=== PATIENT | female | born 1990 | race Caucasian/White ===

== ENCOUNTER 2017-01-09 08:51 | Inpatient (IN) | payer BC ==
[2017-01-09] VITALS (25 sets, daily range): BP systolic 97–114; BP diastolic 50–74; PULSE 71–85; RESP 18; TEMP 97.5–98.4; O2SAT 97–99
[~2017-01-09] VITALS: Ht 162.6 cm; Wt 66.7 kg
--- NOTE | 2017-01-09 09:19 | HHI.HP ---
HPI Chief Complaint Primary for breech presentation. Date Seen: Jan 09, 2017 Travel History International Travel<30 Days: No Contact w/Intl Traveler<30Days: No History of Present Illness HPI Patient is a 26 year old at 39-1/7 weeks gestation who presents today for primary for breech presentation. She denies any vaginal bleeding or discharge. No gush or leaking of fluid. No contractions. Positive movement. No complications with . History Past Medical History Medical History: Denies Significant Hx Obstetric History Obstetric History Past Surgical History Surgical History: No Previous Surgery Family History Family History: Negative Social History Alcohol Use: No Tobacco Use: No Substance Abuse: No Allergies-Medications (Allergen,Severity, Reaction): Coded Allergies: No Known Allergies (Verified Allergy, Mild, 11/15/04) Review of Systems Except as stated in HPI: all other systems reviewed are Neg General / Constitutional: No: Fever, Chills Eyes: No: Blurred Vision, Visual changes HENT: No: Headaches Cardiovascular: No: Chest Pain or Discomfort Respiratory: No: Short of Breath Gastrointestinal: No: Abdominal Pain Genitourinary: No: Pelvic Pain, Discharge, Vaginal Bleeding Musculoskeletal: No: Edema Neurologic: No: Headache Psychiatric: No: Substance Abuse Physical Exam Narrative GENERAL: Well-nourished, well-developed patient. SKIN: Warm and dry. HEAD: Normocephalic and atraumatic. EYES: No scleral icterus. No injection or drainage. ENT: No nasal drainage noted. Mucous membranes pink. Airway patent. NECK: Supple, trachea midline. No JVD. CARDIOVASCULAR: Regular rate and rhythm without murmurs, gallops, or rubs. RESPIRATORY: Breath sounds equal bilaterally. No accessory muscle use. ABDOMEN/GI: Abdomen soft, non-tender, bowel sounds present, no rebound, no guarding Gravid to 39 weeks size GENITOURINARY: External Genitalia: intact and normal in appearance Presentation: Breech Membranes: intact Uterine Contractions: irregular FHT's: Category: I Baseline: 125 Reactive: + Variability: moderate Decels: none EXTREMITIES: No cyanosis or edema. BACK: Nontender without obvious deformity. No CVA tenderness. NEUROLOGICAL: Awake and alert. Motor and sensory grossly within normal limits. Normal speech. Data Data Vital Signs Reviewed: Yes Orders Admit To Inpatient (01/09/17 ) Code Status (01/09/17 09:06) Vital Signs (Adult) .ON ADMISSION (01/09/17 09:06) Activity Oob Ad Amanda (01/09/17 09:06) Heart (01/09/17 09:06) Urinary Catheter Management MICHAEL.Q8H (01/09/17 09:06) ^ Preps (01/09/17 09:06) Scd / Rober / Foot Pump MICHAEL.QSHIFT (01/09/17 09:06) ^ Ultrasound For Locatio (01/09/17 09:06) Diet Npo (01/09/17 Breakfast) Lactated Ringer's 1000 Ml Inj (Lr 1000 M (01/09/17 10:00) Lactated Ringer's 1000 Ml Inj (Lr 1000 M (01/09/17 10:00) Citric Acid-Sodium Citrate Liq (Bicitra (01/09/17 10:45) Type And Screen (01/09/17 09:06) Complete Blood Count With Diff (01/09/17 09:06) Urinalysis - C+S If Indicated (01/09/17 09:06) Cefazolin Inj (Ancef Inj) (01/09/17 10:15) Inpatient Certification (01/09/17 ) Specimen To Be Collected PRN (01/09/17 09:06) Assessment/Plan Assessment and Plan 26 year old at 39-1/7 weeks gestation. 1. IUP- Category I tracing, reassuring. 2. Primary for breech presentation. Breech presentation confirmed by bedside US. 3. GBS positive. Angelina Saldaña Dr., MD R2 Jan 09, 2017 09:19
[2017-01-09 09:58] LABS: AUTOMATED NEUTROPHIL # 5.2 TH/MM3 (1.8-7.7); BASOPHIL % 0.5 % (0.0-2.0); EOSINOPHIL # 0.1 TH/MM3 (0-0.4); EOSINOPHIL % 1.6 % (0.0-4.0); HEMATOCRIT 40.5 % (35.0-46.0); HEMO FLAGS DIFF FINAL; LYMPH % 23.3 % (9.0-44.0); LYMPHOCYTE # 1.8 TH/MM3 (1.0-4.8); MEAN CELL VOLUME 83.1 FL (80.0-100.0); MEAN CORPUSCULAR HEMOGLOBIN 27.5 PG (27.0-34.0); MEAN CORPUSCULAR HGB CONC 33.1 % (32.0-36.0); MONO % 8.9 % (0.0-8.0); NEUT % 65.7 % (16.0-70.0); PLATELET COUNT 156 TH/MM3 (150-450); RED BLOOD COUNT 4.87 MIL/MM3 (4.00-5.30); RED CELL DISTRIBUTION WIDTH 14.2 % (11.6-17.2); WHITE BLOOD COUNT 7.9 TH/MM3 (4.0-11.0)
[2017-01-09] MEDS ORDERED: LACTATED RINGER'S 1000 ML INJ 1,000 ML IV ONE (10:00)
[2017-01-09] MEDS ORDERED: LACTATED RINGER'S 1000 ML INJ 1,000 ML IV SCH ×2 (10:00→18:09)
[2017-01-09 10:14] LABS: BLOOD, URINE SMALL (NEG); GLUCOSE,URINE NEG (NEG); KETONE, URINE NEG (NEG); NITRITE,URINE NEG (NEG); PH, URINE 5.5 (5.0-8.5); URINE COLOR YELLOW (YELLW/STRAW)
[2017-01-09] MEDS ORDERED: CITRIC ACID-SODIUM CITRATE LIQ 30 ML UDC PO SCH (10:45)
[2017-01-09 10:59] LABS: BACTERIA, URINE MOD /hpf; COMMENT (UR) CULTURE INDICATED; CULTURE IF INDICATED CULTURE INDICATED; RBC, URINE 0-3 /hpf (0-3); WBC, URINE 0-2 /hpf (0-5)
[2017-01-09] MEDS ORDERED: OXYTOCIN 10 UNIT/ML AMP ONE (11:15)
[2017-01-09] MEDS ORDERED: DICLOFENAC SODIUM 37.5 MG/ML VIAL IV PUSH ONE (11:15)
[2017-01-09] MEDS ORDERED: ONDANSETRON HCL 4 MG/2 ML VIAL ONE (11:32)
[2017-01-09] MEDS ORDERED: MORPHINE SULFATE PF 5 MG/10 ML VIAL ONE (11:32)
[2017-01-09] MEDS ORDERED: EPIDURAL-NO SYSTEMIC NARCOTICS PRN (12:00)
[2017-01-09] MEDS ORDERED: EPIDURAL-DIPHENHYDRAMINE HCL 50 MG CAP PO PRN (12:00)
[2017-01-09] MEDS ORDERED: EPIDURAL-DO NOT ADMINISTER ANTICOAGULANTS PRN (12:00)
[2017-01-09] MEDS ORDERED: EPIDURAL-DIPHENHYDRAMINE HCL 50 MG/ML VIAL IV PUSH PRN (12:00)
[2017-01-09] MEDS ORDERED: EPIDURAL-NALOXONE HCL 0.4 MG/ML AMP IV PRN (12:00)
[2017-01-09] MEDS ORDERED: oxyCODONE/ACETAMINOPHEN 5 MG/325 MG TAB PO PRN (13:15)
[2017-01-09] MEDS ORDERED: SODIUM CHLORIDE 0.9% FLUSH 10 ML FLUSH IV FLUSH PRN (13:15)
[2017-01-09] MEDS ORDERED: ONDANSETRON HCL 4 MG/2 ML VIAL IV PUSH PRN (13:15)
[2017-01-09] MEDS ORDERED: OXYTOCIN 30 UNITS-500ML PREMIX 500 ML IV ONE (13:15)
[2017-01-09] MEDS ORDERED: SIMETHICONE 80 MG CHEWABLE TAB PO PRN (13:15)
[2017-01-09] MEDS: DICLOFENAC SODIUM 37.5 MG/ML VIAL IV PUSH SCH (18:30)
[2017-01-09] MEDS ORDERED: ZOLPIDEM TARTRATE 5 MG TAB PO PRN (21:00)
[2017-01-09] MEDS ORDERED: SODIUM CHLORIDE 0.9% FLUSH 10 ML FLUSH IV FLUSH SCH (21:00)
[2017-01-09] MEDS ORDERED: OXYTOCIN 30 UNITS-500ML PREMIX 500 ML IV PRN (23:15)
[2017-01-10] VITALS: BP 100/66; PULSE 84; RESP 20; TEMP 98.2; O2SAT 97
[2017-01-10] MEDS: DICLOFENAC SODIUM 37.5 MG/ML VIAL IV PUSH SCH ×2 (00:15→06:28)
[2017-01-10 05:07] VITALS: BP 110/66; PULSE 85; RESP 20; TEMP 97.9
[2017-01-10 05:58] LABS: BASOPHIL % 0.3 % (0.0-2.0); EOSINOPHIL # 0.1 TH/MM3 (0-0.4); HEMATOCRIT 39.4 % (35.0-46.0); HEMO FLAGS DIFF FINAL; LYMPH % 18.2 % (9.0-44.0); LYMPHOCYTE # 2.2 TH/MM3 (1.0-4.8); MEAN CELL VOLUME 84.1 FL (80.0-100.0); MEAN CORPUSCULAR HEMOGLOBIN 27.3 PG (27.0-34.0); MEAN CORPUSCULAR HGB CONC 32.5 % (32.0-36.0); NEUT % 73.5 % (16.0-70.0); PLATELET COUNT 158 TH/MM3 (150-450); RED BLOOD COUNT 4.68 MIL/MM3 (4.00-5.30); RED CELL DISTRIBUTION WIDTH 14.6 % (11.6-17.2); WHITE BLOOD COUNT 12.3 TH/MM3 (4.0-11.0)
--- NOTE | 2017-01-10 08:34 | HHI.OB ---
Subjective Post Operative Day: 1 Objective Vitals/I&O Vital Signs Date Time Temp Pulse Resp B/P Pulse Ox O2 Delivery O2 Flow Rate FiO2 01/10/17 05:07 97.9 85 20 110/66 01/10/17 00:00 84 100/66 01/10/17 00:00 98.2 20 97 01/09/17 15:15 97.9 71 18 114/72 01/09/17 14:19 97.5 01/09/17 14:19 75 104/66 01/09/17 14:19 18 99 01/09/17 14:03 71 18 102/51 98 01/09/17 13:48 79 18 97/50 98 01/09/17 13:31 78 18 98/55 97 01/09/17 13:18 97.8 97 01/09/17 13:18 76 18 97/56 01/09/17 11:00 81 01/09/17 10:55 78 01/09/17 10:50 80 01/09/17 10:45 82 01/09/17 10:30 72 01/09/17 10:25 82 01/09/17 10:20 83 01/09/17 10:10 80 01/09/17 10:05 81 01/09/17 10:00 78 01/09/17 09:55 84 01/09/17 09:45 79 01/09/17 09:40 79 01/09/17 09:35 81 01/09/17 09:30 80 01/09/17 09:25 77 01/09/17 09:20 79 01/09/17 09:19 98.4 18 01/09/17 09:19 78 112/74 01/09/17 09:15 85 Result Diagram: 01/10/17 0530 Objective Remarks GENERAL: Well-nourished, well-developed patient. CARDIOVASCULAR: Regular rate and rhythm without murmurs, gallops, or rubs. RESPIRATORY: Breath sounds equal bilaterally. No accessory muscle use. ABDOMEN/GI: Abdomen soft, non-tender, bowel sounds present. Incision: DRESSING Clean, dry and intact. Fundus: Firm, non-tender at umbilicus. GENITOURINARY: Light to moderate bleeding. EXTREMITIES: No cyanosis or edema, non-tender, without signs of DVT. Medications and IVs Current Medications Medications (Trade) Dose Ordered Sig/Tonja Route Start Time Stop Time Status Last Admin (Lr 1000 ml Inj) 1,000 ml @ 100 mls/hr Q10H IV 01/09/17 18:09 01/10/17 14:08 01/10/17 00:16 (NS Flush) 2 ml BID IV FLUSH 01/09/17 21:00 (NS Flush) 2 ml UNSCH PRN IV FLUSH 01/09/17 13:15 (Mylicon Chew) 80 mg QID PRN PO 01/09/17 13:15 (Motrin) 600 mg Q6H PRN PO 01/09/17 13:15 (Percocet 5-325 Mg) 1 tab Q4H PRN PO 01/09/17 13:15 (Percocet 5-325 Mg) 2 tab Q4H PRN PO 01/09/17 13:15 (Yi-Colace) 2 tab Q12H PRN PO 01/09/17 13:15 (Ambien) 5 mg HS PRN PO 01/09/17 21:00 (M-M-R Ii Inj) 0.5 ml ONCE ONCE SQ 01/10/17 16:00 01/10/17 16:01 (Boostrix Inj) 0.5 ml ONCE ONCE IM 01/10/17 16:00 01/10/17 16:01 (Zofran Inj) 4 mg Q6H PRN IV PUSH 01/09/17 13:15 Miscellaneous Information NO SYSTEMIC NARCOTICS TO BE GIVEN FO... UNSCH PRN .XX 01/09/17 12:00 01/10/17 11:59 (Narcan Inj) 0.4 mg UNSCH PRN IV 01/09/17 12:00 01/10/17 11:59 (Benadryl Inj) 25 mg Q6H PRN IV PUSH 01/09/17 12:00 01/10/17 11:59 (Benadryl) 50 mg Q6H PRN PO 01/09/17 12:00 01/10/17 11:59 Miscellaneous Information ALL NURSING DEPARTMENTS UNSCH PRN .XX 01/09/17 12:00 01/10/17 11:59 Assessment/Plan Problem List: (1) S/P primary low transverse Plan: ROUTINE Assessment and Plan POD #1 Pt doing well pain well managed with oral pain medication pt to shower today bonding with infant routine Discharge Planning consider dc in 1-2 days Clarice England Jan 10, 2017 08:34
--- NOTE | 2017-01-10 08:35 | HHI.DCPOC ---
Discharge Care Plan Diagnosis: (1) S/P primary low transverse Your Health Problems Are: delivery Report Symptoms to Your Doctor -Temperature above 100.5 degrees -Redness, of incision or excessive or foul smelling drainage -Unusual pain or calf pain -Increased vaginal bleeding -Painful or difficulty urinating -Feelings of extreme sadness or anxiety after 2 weeks Goals to Promote Your Health * To prevent worsening of your condition and complications * To maintain your health at the optimal level Directions to Meet Your Goals Take your medications as prescribed Follow your dietary instruction Follow activity as directed Ensure plenty of rest for recovery Drink fluids for hydration Keep your appointments as scheduled Take your immunizations and boosters as scheduled If your symptoms worsen call your PCP, if no PCP go to Urgent Care Center or Emergency Room Smoking is Dangerous to Your Health. Avoid second hand smoke Call the 24-hour crisis hotline for domestic abuse at Clarice England Jan 10, 2017 08:35
--- NOTE | 2017-01-10 10:32 | MP ---
cc: [facility]List DATE OF SURGERY: 01/09/2017 PREOPERATIVE DIAGNOSIS: 1. Intrauterine at 39+ weeks. 2. Breech presentation. POSTOPERATIVE DIAGNOSIS: 1. Intrauterine at 39+ weeks. 2. Breech presentation. OPERATION: Primary low transverse section. ANESTHESIA: Spinal. SURGEON: Gabrielle Segura MD. COSURGEON: Alecia Burnett MD, R2. FINDINGS: Normal male . Good 's, good tone, normal uterus, tubes and ovaries. COMPLICATIONS: None. COUNTS: Correct. ESTIMATED BLOOD LOSS: 500 cc. FLUIDS: Crystalloids. FINDINGS: The patient tolerated the procedure well and went to the Recovery Room in good condition. The patient was taken to the operating room after ultrasound was done to confirm the location. PROCEDURE: Under an adequate level of anesthesia, she was prepped and draped for abdominal surgery. A Pfannenstiel incision was made and carried down to the fascia. The fascia was taken off the rectus muscle by blunt and sharp dissection. The rectus muscles were spread bluntly and the peritoneum was entered under direct vision without difficulty. The incision was extended with care to avoid the urinary bladder. A bladder blade was placed and a bladder flap created in the usual fashion. The uterine incision was made in a transverse manner along the lower uterine segment which was not well-developed. It was taken down in the midline until the intrauterine cavity was entered. A large amount of clear fluid was noted. The breech was grasped and delivered without difficulty. The legs were delivered and the thorax was delivered. The arms were reduced bilaterally without difficulty. With gentle fundal pressure the vertex was delivered without difficulty and the hypopharynx and nasopharynx were suctioned. The cord doubly clamped and cut and the handed to the resuscitation team present. The placenta was delivered manually. The uterus was curettaged twice with a wet lap and irrigated with a large amount of fluid. The uterine incision was then repaired with 2-0 Vicryl in a running locking fashion, with the second layer imbricating the first. Hemostasis was excellent. The cul-de-sac and gutters were cleaned of blood and debris. The uterus was delivered back into the abdomen. The rectus muscles were reapproximated with 0 Vicryl in interrupted fashion. The fascia was repaired from lateral to midline with 0 Vicryl and the Subcu was repaired with 3-0 Vicryl. The skin was repaired with a 4-0 Vicryl in a subcuticular manner. The wound was sterilely dressed. She tolerated the procedure well and went to the recovery room in satisfactory condition. R. MD JEISON Carroll/aga /1:12 PM /10:06 AM
[2017-01-10] MEDS: DOCUSATE SODIUM 50 MG/SENNA 8.6 MG TAB PO PRN (13:05)
[2017-01-10] MEDS: IBUPROFEN 600 MG TAB PO PRN ×2 (13:05→20:02)
[2017-01-10] MEDS: oxyCODONE/ACETAMINOPHEN 5 MG/325 MG TAB PO PRN ×2 (13:05→20:02)
[2017-01-10] MEDS ORDERED: MEASLES, MUMPS, RUBELLA VACCINE 0.5 ML VIAL SQ ONE (16:00)
[2017-01-10] MEDS ORDERED: DIPHTH/TETANUS/ACEL PERTUSSIS (BOOSTER) 0.5 ML VIAL/PFS IM ONE (16:00)
[2017-01-10 20:00] VITALS: BP 122/74; PULSE 83; RESP 18; TEMP 98.5
[2017-01-11] MEDS: oxyCODONE/ACETAMINOPHEN 5 MG/325 MG TAB PO PRN ×4 (00:25→13:17)
[2017-01-11] MEDS: IBUPROFEN 600 MG TAB PO PRN ×2 (03:30→09:09)
[2017-01-11 07:39] VITALS: BP 118/70; PULSE 94; RESP 18
[2017-01-11] MEDS ORDERED: IBUP-232 PO (08:07)
[2017-01-11] MEDS ORDERED: OXYC1TAB63 PO (08:07)
--- NOTE | 2017-01-11 08:45 | HHI.DS ---
Admission Date Jan 09, 2017 at 08:51 Discharge Date: Jan 11, 2017 Admitting Diagnosis term breech presentation Diagnosis: (1) S/P primary low transverse Delivery Date: Jan 09, 2017 : Primary Reason: breech : Male Brief History Patient is a 26 year old at 39-1/7 weeks gestation who presents today for primary for breech presentation. primary c section . Hospital Course primary c section for breech routine Pt Condition on Discharge: Good Discharge Disposition: Discharge Home Discharge Instructions Diet Instructions: As Tolerated, No Restrictions Additional Diet Instructions: Drink at least 8 - 16 oz bottles of water a day Activities You Can Perform: Shower Only-No Bath Activities to Avoid: Prolonged Standing, Strenuous Activity, Sexual Activity Additional Activity Instruc.: No driving until off pain medications Do not lift anything heavier than your baby in an carrier Follow up Referrals: ORTHOPEDIC PHYSICIAN ASSISTANT - 1 Week @ [facility] New Medications: Ibuprofen (Ibuprofen) 600 Mg Tab 600 MG PO Q6H Pain Management #30 TAB Oxycodone-Acetaminophen (Oxycodone-Acetaminophen) 5-325 mg Tab 1 TAB PO Q4H moderate pain #30 TAB Clarice England Jan 11, 2017 08:45
--- NOTE | 2017-01-11 08:47 | HHI.OB ---
Subjective Post Operative Day: 2 Objective Vitals/I&O Vital Signs Date Time Temp Pulse Resp B/P Pulse Ox O2 Delivery O2 Flow Rate FiO2 01/11/17 07:39 94 18 118/70 01/10/17 20:00 98.5 01/10/17 20:00 83 18 122/74 Result Diagram: 01/10/17 0530 Objective Remarks GENERAL: Well-nourished, well-developed patient. CARDIOVASCULAR: Regular rate and rhythm without murmurs, gallops, or rubs. RESPIRATORY: Breath sounds equal bilaterally. No accessory muscle use. ABDOMEN/GI: Abdomen soft, non-tender, bowel sounds present. Incision: Clean, dry and intact. Fundus: Firm, non-tender at umbilicus. GENITOURINARY: Light to moderate bleeding. EXTREMITIES: No cyanosis or edema, non-tender, without signs of DVT. Medications and IVs Current Medications Medications (Trade) Dose Ordered Sig/Tonja Route Start Time Stop Time Status Last Admin (NS Flush) 2 ml BID IV FLUSH 01/09/17 21:00 (NS Flush) 2 ml UNSCH PRN IV FLUSH 01/09/17 13:15 (Mylicon Chew) 80 mg QID PRN PO 01/09/17 13:15 (Motrin) 600 mg Q6H PRN PO 01/09/17 13:15 01/11/17 03:30 (Percocet 5-325 Mg) 1 tab Q4H PRN PO 01/09/17 13:15 01/11/17 05:03 (Percocet 5-325 Mg) 2 tab Q4H PRN PO 01/09/17 13:15 (Yi-Colace) 2 tab Q12H PRN PO 01/09/17 13:15 01/10/17 13:05 (Ambien) 5 mg HS PRN PO 01/09/17 21:00 (Zofran Inj) 4 mg Q6H PRN IV PUSH 01/09/17 13:15 Assessment/Plan Problem List: (1) S/P primary low transverse Plan: ROUTINE Assessment and Plan POD #2 Pt doing well pain well managed with oral pain medication passing gas bonding with infant/ routine Discharge Planning dc home today Clarice England Jan 11, 2017 08:47
[2017-01-11] MEDS: DOCUSATE SODIUM 50 MG/SENNA 8.6 MG TAB PO PRN (09:09)
== END 2017-01-11 14:51 | disposition home or self-care (01) | DRG 766 ==
LOC: H2EB 08:51 → H1EA 14:38
PROVIDERS: ADMIT Obstetrics & Gynecology; ATTEND Obstetrics & Gynecology
PROC: 10D00Z1 Extraction of Products of Conception, Low, Open Approach (ICD-10-PCS; principal; 2017-01-09)
DX: O32.1XX0 Maternal care for breech presentation, not applicable or unspecified (principal); O99.824 Streptococcus B carrier state complicating childbirth; Z37.0 Single live birth; Z3A.39 39 weeks gestation of pregnancy
CPT/HCPCS: 59025; 76815; 81001; 85025; 86850; 86900; 86901; 87086; 90715; J0690; J1130; J2274; J2405; J2590; J7120

== ENCOUNTER → 2017-02-23 | Outpatient (CLI) | payer BC ==
[~2017-02-23] MED LIST: IBUP-232 PO; LIDOCAINE HCL 1% PF 30 ML VIAL ONE; OXYC1TAB63 PO; SODIUM BICARBONATE 8.4% INJ 50 ML ONE
[2017-02-23 13:40] VITALS: BP 130/68; PULSE 92; RESP 18; TEMP 98.4; O2SAT 97
--- NOTE | 2017-02-24 11:42 | RADRPT ---
EXAM DATE/TIME: 02/23/2017 12:08 [facility] COMPARISON: No previous studies available for comparison. INDICATIONS : Left breast abscess aspiration. Anesthesia and pain control was provided by the Anesthesia department. MEDICAL HISTORY : Left breast abscess. Severed spleen. Head trauma. Hematuria. SURGICAL HISTORY : section. ENCOUNTER: Initial ACUITY: 3 weeks PAIN SCORE: 8/10 LOCATION: Left breast. FLUID: Total volume of 40 cc of pus was removed. Fluid was sent to the lab for ordered studies. DEVICE: 8 Syrian Skater catheter 18 gauge 9 cm Christian needle The risks, benefits and alternatives to the procedure were explained and verbal and written consent w as obtained. The site was prepped in sterile fashion. Full sterile technique was used, including cap, mask, steril e gloves and gown and a large sterile sheet. Hand hygiene and 2% chlorhexidine and/or betadine/alcoho l prep was utilized per protocol for cutaneous antisepsis. The skin and subcutaneous tissues were inf iltrated with local anesthetic solution. Using US guidance the left breast abscess was localized. Aspiration of pus obtained in the left breas t using an 18 gauge 9 cm Christian needle. An 8 Syrian catheter was placed within the left breast and 4 0 cc of pus aspirated. The patient tolerated the procedure well and there were no complications. The patient tolerated the procedure well and there were no complications. Post procedure scanning re veals no hematoma or other complication. CONCLUSION: Uncomplicated abscess drainage with catheter placement in the left breast. Esau Brennan MD on February 24, 2017 at 11:32 Board Certified Radiologist. This report was verified electronically.
== END ==
LOC: HRAD 11:45
PROVIDERS: ATTEND Obstetrics & Gynecology
DX: N61.1 Abscess of the breast and nipple (principal); B95.62 Methicillin resistant Staphylococcus aureus infection as the cause of diseases classified elsewhere
CPT/HCPCS: 10160; 75989; 86403; 87070; 87102; 87186; 87205; 87206; C1729; 76942